=== PATIENT | female | born 1960 | race Caucasian/White ===

== ENCOUNTER 2020-12-19 11:43 | Day surgery (SDC) | payer BC ==
[~2020-12-19] VITALS: Ht 162.6 cm; Wt 91.3 kg
[2020-12-19] MEDS ORDERED: AMBI10TA PO (11:54)
[2020-12-19] MEDS ORDERED: OMEP40CA97 PO (11:54)
[2020-12-19] MEDS ORDERED: ONDANSETRON 4MG/2ML VIAL IV ONE (12:10)
[2020-12-19] MEDS ORDERED: NS 1,000 ML IV ONE (12:20)
[2020-12-19 12:38] LABS: BASO % 0.1 % (0.0-1.0); EOS % 0.1 % (0.0-3.0); HEMATOCRIT 42.1 % (36.0-47.0); LYMPH # 1.1 10^3/uL (1.5-5.0); LYMPH % 7.1 % (24.0-44.0); MEAN CORPUSCULAR HEMOGLOBIN 31.2 pg (27.0-33.0); MEAN CORPUSCULAR HGB CONC 33.3 g/dl (32.0-36.5); MEAN CORPUSCULAR VOLUME 93.8 fl (80.0-96.0); MONO # 0.6 10^3/uL (0.0-0.8); NEUTROPHILS # 13.1 10^3/uL (1.5-8.5); NEUTROPHILS % 88.3 % (36.0-66.0); PLATELET COUNT, AUTOMATED 242 10^3/uL (150-450); RED BLOOD COUNT 4.49 10^6/uL (4.00-5.40); WHITE BLOOD COUNT 14.9 10^3/uL (4.0-10.0)
[2020-12-19 13:10] LABS: ALBUMIN 3.8 GM/DL (3.2-5.2); ALT/SGPT 18 U/L (12-78); BILIRUBIN,DIRECT 0.2 MG/DL (0.0-0.2); BILIRUBIN,TOTAL 0.7 MG/DL (0.2-1.0); BLOOD UREA NITROGEN 10 MG/DL (7-18); CALCIUM LEVEL 8.7 MG/DL (8.8-10.2); CARBON DIOXIDE LEVEL 25 MEQ/L (21-32); CHLORIDE LEVEL 101 MEQ/L (98-107); CK-MB VALUE MASS < 1.0 NG/ML (<3.6); CPK CREATINE PHOSPHOKINASE 32 U/L (26-192); CREATININE FOR GFR 0.66 MG/DL (0.55-1.30); GLOMERULAR FILTRATION RATE > 60.0 (>45); GLUCOSE, FASTING 109 MG/DL (70-100); LIPASE 61 U/L (73-393); MB/CK RELATIVE INDEX 3.12 (< OR =4); POTASSIUM SERUM 3.9 MEQ/L (3.5-5.1); SODIUM LEVEL 137 MEQ/L (136-145); TOTAL PROTEIN 7.1 GM/DL (6.4-8.2); TROPONIN I < 0.02 NG/ML (< 0.10)
[2020-12-19] MEDS ORDERED: ISOVUE-370 76% 100ML VIAL As Ordered ONE (14:03)
[2020-12-19] MEDS ORDERED: METOCLOPRAMIDE INJ 10MG/2ML VIAL (J2765 PER 1) IV ONE (14:30)
--- NOTE | 2020-12-19 14:48 | REP ---
INDICATION: abdominal pain; r/o COMPARISON: None TECHNIQUE: Standard helical technique after the administration of 100 cc Isovue 370 intravenously. No oral bowel preparatory contrast was administered prior to the exam. FINDINGS: Subsegmental atelectatic changes are seen in the lung bases. There are no pleural or pericardial effusions. There are multiple areas of low density seen in the liver consistent with hepatic cysts. There are no enhancing hepatic lesions. The gallbladder, spleen, pancreas, adrenal glands, and kidneys are within normal limits. The abdominal aorta and para-aortic regions are within normal limits. The appendix is dilated with fatty infiltration of the mesoappendix and a small amount of fluid within the mesoappendix. There is an appendicolith in the base of the appendix. There is no evidence of free intraperitoneal air. There is a small amount of free air in the urinary bladder. The osseous structures are within normal limits for the patient's age. IMPRESSION: 1. Acute appendicitis. 2. Air density within the urinary bladder. Etiology uncertain. If there has not been recent urinary bladder instrumentation than cystitis from a gas producing organism cannot be ruled out. 3. Multiple simple hepatic cysts. <Electronically signed by Frankie Hwang > 12/19/20 [id number]
[2020-12-19] MEDS ORDERED: PIPERACILLIN/TAZOBACTAM SOD 3.375 GM in D5W MINI-BAG PLUS 50 ML IV ONE (15:00)
[2020-12-19] MEDS ORDERED: XANA0.5T PO (15:59)
[2020-12-19] MEDS ORDERED: fentaNYL 250 MCG/5 ML INJECTION (J3010) As Ordered ONE (17:16)
[2020-12-19] MEDS ORDERED: MIDAZOLAM INJ 2MG/2ML VIAL (J2250 PER 1MG) As Ordered ONE (17:16)
[2020-12-19] MEDS ORDERED: ROCURONIUM BROMIDE 50 MG/5 ML VIAL As Ordered ONE (17:16)
[2020-12-19] MEDS ORDERED: KETOROLAC 60MG 2ML VIAL As Ordered ONE (17:16)
[2020-12-19] MEDS ORDERED: propofoL 200 MG/20 ML VIAL As Ordered ONE (17:16)
[2020-12-19] MEDS ORDERED: LIDOCAINE 2% 100MG/5ML SDV (FOR ANES.) As Ordered ONE (17:16)
[2020-12-19] MEDS ORDERED: dexameTHASONE 4 MG/ML 1ML VIAL (J1100 PER 1MG) As Ordered ONE (17:16)
[2020-12-19] MEDS ORDERED: ONDANSETRON 4MG/2ML VIAL As Ordered ONE (17:16)
[2020-12-19] MEDS ORDERED: SUGAMMADEX SODIUM 500 MG/5 ML VIAL (BRIDION) As Ordered ONE (17:16)
[2020-12-19] MEDS ORDERED: BUPIVACAINE HCL 0.25% 30ML VIAL As Ordered ONE (17:42)
[2020-12-19] MEDS ORDERED: PHENYLephrine 500MCG 5ML (100MCG/ML) SYRINGE As Ordered ONE (18:26)
[2020-12-19] MEDS ORDERED: ACETAMINOPHEN 1000MG 100ML IV BTL (OFIRMEV) (J0131 PER 10MG) As Ordered ONE (18:47)
[2020-12-19] MEDS ORDERED: NS 1,000 ML IV SCH (19:10)
[2020-12-19] MEDS ORDERED: ALPRAZolam 0.5 MG TAB PO PRN (19:10)
[2020-12-19] MEDS ORDERED: NORCO, ANEXSIA 5/325MG TABLET (HYDROcodone/ACETAMINOPHEN) PO PRN ×2 (19:10)
[2020-12-19] MEDS ORDERED: ONDANSETRON 4 MG TAB PO PRN (19:10)
[2020-12-19] MEDS ORDERED: zolPIDEM TARTRATE 5 MG TAB PO PRN (19:10)
[2020-12-19] MEDS ORDERED: MORPHINE 2 MG/ML 1ML VIAL (J2270) IV PRN ×2 (19:10)
[2020-12-19] MEDS ORDERED: oxyCODONE 5MG TAB PO PRN (19:35)
[2020-12-19] MEDS ORDERED: HYDROMORPHONE HCL 0.5 MG/ 0.5 ML SYRINGE (J1170 PER 1) IV PRN (19:35)
[2020-12-19] MEDS ORDERED: fentaNYL 100 MCG/2 ML INJECTION (J3010) IV PRN (19:35)
[2020-12-19] MEDS ORDERED: ONDANSETRON 4MG/2ML VIAL IV PRN (19:35)
[2020-12-19] MEDS ORDERED: METOCLOPRAMIDE INJ 10MG/2ML VIAL (J2765 PER 1) IV PRN (19:35)
[2020-12-19] MEDS ORDERED: LR 1,000 ML IV SCH (19:35)
--- NOTE | 2020-12-19 20:50 | ECGEPIP ---
[facility] - ED Test Date: 2020-12-19 Pat Name: MURPHY HOSKINS Department: Room: - Gender: Female [employer]: [place] : 1960 Requested By: ADALGISA WATSON Order Number: [id number] Reading MD: Steve Bowling Measurements Intervals [place] Rate: 87 P: 45 NV: 140 QRS: 11 QRSD: 92 T: 35 QT: 390 QTc: 469 Interpretive Statements Normal sinus rhythm Nonspecific ST abnormality NO PRIORS FOR COMPARISON Electronically Signed on 12-19-2020 20:49:49 EDT by Steve Bowling
[2020-12-19 21:00] VITALS: BP 113/64
[2020-12-19] MEDS: PIPERACILLIN/TAZOBACTAM SOD 3.375 GM in D5W MINI-BAG PLUS 50 ML IV SCH (21:18)
[2020-12-19 21:30] VITALS: BP 112/63
[2020-12-19 22:30] VITALS: BP 110/62
[2020-12-19 23:30] VITALS: BP 108/61
[2020-12-19] MEDS: KETOROLAC 30 MG/ML 1ML VIAL IV SCH (23:51)
[2020-12-20 00:30] VITALS: BP 107/61
[2020-12-20 01:30] VITALS: BP 107/61
[2020-12-20] MEDS: PIPERACILLIN/TAZOBACTAM SOD 3.375 GM in D5W MINI-BAG PLUS 50 ML IV SCH ×2 (03:24→09:08)
[2020-12-20] MEDS: KETOROLAC 30 MG/ML 1ML VIAL IV SCH (05:28)
[2020-12-20 06:00] VITALS: BP 104/56
[2020-12-20] MEDS ORDERED: OMEPRAZOLE 20 MG CAP PO SCH (09:00)
== END 2020-12-20 10:28 | disposition home or self-care (01) ==
LOC: M ED 11:43 → M SDC 15:31 → M MSPAV 21:00 → M SDC 12-20 10:28
PROVIDERS: ATTEND Surgery
DX: K35.890 Other acute appendicitis without perforation or gangrene (principal); I48.91 Unspecified atrial fibrillation; Z79.899 Other long term (current) drug therapy; F17.218 Nicotine dependence, cigarettes, with other nicotine-induced disorders
CPT/HCPCS: 44970; 74177; 80048; 80076; 82550; 82553; 83690; 84484; 85025; 87798; 88304; 93005; 93041; 96361; 96365; 96366; 96375; 96376; 99285; J0131; J1100; J1885; J2250; J2370; J2405; J2543; J2765; J3010; Q9967